=== PATIENT | female | born 1995 | race Caucasian/White ===

== ENCOUNTER 2019-11-06 09:59 | Inpatient (IN) ==
[2019-11-06] MEDS ORDERED: OXYTOCIN/DEXTROSE 5%-WATER 30 UNITS/500 ML BAG IV ONE (17:45)
[2019-11-06] MEDS ORDERED: BUTORPHANOL TARTRATE 2 MG/ML VIAL IV PRN ×2 (17:45)
[2019-11-06] MEDS ORDERED: ONDANSETRON 4 MG TAB.RAPDIS PO PRN (17:45)
[2019-11-06] MEDS ORDERED: RINGER'S SOLUTION,LACTATED 1,000 ML IV ONE (17:45)
[2019-11-06] MEDS ORDERED: LIDOCAINE HCL 50 ML VIAL PERI PRN (17:45)
[2019-11-06] MEDS ORDERED: NALBUPHINE HCL 10 MG/ML AMPUL IV PRN ×2 (17:45)
[2019-11-06] MEDS ORDERED: MISOPROSTOL 100 MCG TABLET VG PRN (17:45)
[2019-11-06 18:27] LABS: Cocaine Ur Negative (NEGATIVE); Urine Barbiturate Negative (NEGATIVE); Urine Benzodiazepines Negative (NEGATIVE); Urine Opiates Negative (NEGATIVE); Urine PCP Negative (NEGATIVE)
[2019-11-06 18:29] LABS: Urine THC Positive (NEGATIVE)
[2019-11-06] MEDS: RINGER'S SOLUTION,LACTATED 1,000 ML IV PRN (18:36)
[2019-11-07] MEDS: RINGER'S SOLUTION,LACTATED 1,000 ML IV PRN ×3 (02:51→17:59)
--- NOTE | 2019-11-07 12:01 | HP ---
Chief Complaint - Chief Complaint Date of Service: 11/07/19 Time of Service: 11:50 Chief Complaint: Labor induction History of Present Illness: 23 year old at 39w 1d who presents to labor and delivery for a medical induction of labor due to LGA fetus. She is starting to feel her ctx. She denies vb or lof. Fetus is active. Medical History (Last Reviewed 11/07/19 @ 11:53 by Margo Valente MD) No pertinent past medical history Onset Date: Unknown Scoliosis Onset Date: Unknown slight Blood in stool Onset Date: Unknown Depression Onset Date: Unknown Migraine Onset Date: Unknown resolved after having wisdom teeth extracted Thyroid disease Onset Date: ~2014 resolved UTI (urinary tract infection) Onset Date: Unknown as child Wrist fracture Onset Date: ~2014 Surgical History: Surgical History (Last Reviewed 11/07/19 @ 11:53 by Margo Valente MD) H/O wisdom tooth extraction Onset Date: Unknown bilateral leg fractures Onset Date: ~2014 open reduction internal fixation of left wrist Onset Date: Unknown Family History: Family History (Last Reviewed 11/07/19 @ 11:53 by Margo Valente MD) Mother Asthma Father Alive and well Uncle Crohn's disease Grandmother Lupus Other No pertinent family history Social History: (Last Reviewed 11/07/19 @ 11:53 by Margo Valente MD) Social History: adopted: No foster care: No fci: No Marital status: lives independently: Yes household members: spouse caregiver/support person: No current occupational status: unemployed Highest education level completed: high school graduate Sexually Active: Yes Service: No Tobacco: Smoking Status: Never smoker passive smoking exposure: No second hand exposure: No Alcohol: alcohol intake: former Substance Use: substance use type: former substance user, marijuana Dietary Habits: caffeine: Yes caffeine comment: 2 Type: carbonated beverages Review Of Systems (GEN) - Review of Systems Generalized/Overall Review: Present: No Symptoms Reported Genitourinary: Present: Other - contractions Misc: All systems neg except as marked Immunizations: IMMUNIZATION HX Immunizations Up to Date Yes History of Influenza Vaccine No Hx Pneumococcal Vaccination Yes Allergies/Adverse Reactions: Allergies Allergy/AdvReac Type Severity Reaction Status Date / Time Iodine and Iodide Containing AdvReac RASH Verified 10/30/19 08:55 Produc red dye AdvReac RASH Verified 10/30/19 08:55 Home Medications: HOME MEDICATIONS prenat.vits,josr,iiu-hhyn-gbcbs 1 tab PO DAILY 04/10/19 [Last Taken 11/05/19] sertraline 50 mg tablet 50 mg PO DAILY #30 tab 08/02/19 [Last Taken 11/06/19] ferrous sulfate 325 mg (65 mg iron) tablet 325 mg PO DAILY 09/04/19 [Last Taken 11/05/19] Exam - Exam Vital Signs: 139/77 36.5 Celcius 116 18 100 % RA Constitutional: Present: Alert, Oriented x3, Cooperative, No distress ENT Exam: Present: hearing grossly normal Neck: Present: supple, normal inspection Back Exam: Present: normal inspection, no CVA tenderness Breasts: Present: Exam deferred Respiratory: Present: lungs clear, normal breath sounds Cardiovascular/Chest: Present: regular rate, rhythm Abdomen: Present: soft, nontender, nondistended /Rectal: Present: Other - Fingertip/30/-3 Extremity: Present: non-tender, no calf tenderness Skin Exam: Present: normal color, warm/dry, no cyanosis Appearance: Present: appropriate appearance Eye contact: Present: cooperative Thoughts: Present: normal thought pattern Diagnostic Studies: Abnormal Lab Results 11/06/19 Range/Units 18:00 Urine Marijuana (THC) Positive H (NEGATIVE) Laboratory Results Urine Opiates Screen Negative (NEGATIVE) 11/06/19 18:00 Barbiturate Screen Negative (NEGATIVE) 11/06/19 18:00 Ur Phencyclidine Scrn Negative (NEGATIVE) 11/06/19 18:00 Urine Amphetamine Negative (NEGATIVE) 11/06/19 18:00 U Benzodiazepines Scrn Negative (NEGATIVE) 11/06/19 18:00 Urine Cocaine Screen Negative (NEGATIVE) 11/06/19 18:00 Urine Marijuana (THC) Positive (NEGATIVE) H 11/06/19 18:00 Blood Type B Positive 11/06/19 17:55 Antibody Screen Positive 11/06/19 17:55 Assessment/Plan - Narrative Narrative: 23 year old at 39w 1d Medical IOL: the patient received one cytotec and then has had very regular contractions since receiving cytotec and has remained fingertip. A Rodrigues bulb was placed GBS negative: prophylaxis not indicated
--- NOTE | 2019-11-07 15:04 | PN ---
Eli Note - Interim Date: 11/07/19 Time: 15:00 Narrative: 11/07/19 15:00 Late entry for Rodrigues balloon placement A sterile speculum was placed in the patient's vagina. An 14 danish Rodrigues balloon was initially placed with the aid of a tenaculum. The balloon was filled with 45 mL of saline which caused the balloon to rupture. The patient was informed that the balloon ruptured. Then an 18 danish Rodrigues balloon was placed and filled with 30 mL of saline without any difficulty. The speculum was removed from the patient's vagina. The patient tolerated the procedure well with discomfort. FHT was cat 1 the entire time during insertion
[2019-11-07] MEDS ORDERED: NALOXONE HCL 1 MG/1 ML SYRG IV PRN (16:04)
[2019-11-07] MEDS ORDERED: ONDANSETRON HCL/PF 2 MG/ML VIAL IV PRN (16:04)
[2019-11-07] MEDS ORDERED: fentaNYL CITRATE/PF 50 MCG/ML AMPUL IT SCH (16:15)
--- NOTE | 2019-11-07 17:08 | ANES ---
Anesthesia Pre Procedure Eval Vitals/Labs: Last Vital Signs Temp 36.6 C 11/07/19 17:02 Pulse 109 H 11/07/19 17:02 Resp 20 11/07/19 17:02 BP 125/63 11/07/19 17:02 HOME MEDICATIONS prenat.vits,josr,egx-rchr-nqchd 1 tab PO DAILY 04/10/19 [Last Taken 11/05/19] sertraline 50 mg tablet 50 mg PO DAILY #30 tab 08/02/19 [Last Taken 11/06/19] ferrous sulfate 325 mg (65 mg iron) tablet 325 mg PO DAILY 09/04/19 [Last Taken 11/05/19] Allergies/Adverse Reactions: Allergies Allergy/AdvReac Type Severity Reaction Status Date / Time Iodine and Iodide Containing AdvReac RASH Verified 10/30/19 08:55 Produc red dye AdvReac RASH Verified 10/30/19 08:55 - Planned Procedure Planned Procedure: Medical Induction Medication List Reviewed:: Yes Allergies Verified: Yes Medical History (Last Reviewed 11/07/19 @ 17:07 by Srikanth Lopez CRNA) No pertinent past medical history Onset Date: Unknown Scoliosis Onset Date: Unknown slight Blood in stool Onset Date: Unknown Depression Onset Date: Unknown Migraine Onset Date: Unknown resolved after having wisdom teeth extracted Thyroid disease Onset Date: ~2014 resolved UTI (urinary tract infection) Onset Date: Unknown as child Wrist fracture Onset Date: ~2014 Surgical History (Last Reviewed 11/07/19 @ 17:07 by Srikanth Lopez CRNA) H/O wisdom tooth extraction Onset Date: Unknown bilateral leg fractures Onset Date: ~2014 open reduction internal fixation of left wrist Onset Date: Unknown Family History (Last Reviewed 11/07/19 @ 17:07 by Srikanth Lopez CRNA) Mother Asthma Father Alive and well Uncle Crohn's disease Grandmother Lupus Other No pertinent family history - Family Anesthesia History Family History:: no untoward family reactions to anesthesia - Airway/Neck/Teeth Within Normal Limits:: Yes Teeth Condition: intact Neck Exam: full range of motion Mallampatti Score: 2 Thyromental (T-M) distance: > 6 cm Mandibulo Hyoid distance: > 3 cm - Respiratory Respiratory Physical: lungs clear Smoking Status: Never smoker Sleep Apnea currently treated: No Sleep Apnea by current assessment: No - Cardiovascular Tolerate Activity: Good Heart Sounds: S1 & S2, Regular - Gastrointestinal NPO since: 1500 - Anesthesia Assessment and Plan ASA Class: PS, II, E Anesthesia Type Plan: Epidural Planned difficult intubation/equipment available: No
--- NOTE | 2019-11-07 17:09 | ANES ---
Post Anesthesia Discharge - Transfer of Care Transfer of Care handoff given to nurse: Yes - Anesthesia Post Op Note Anesthesia Post Op Note: Care transferred to OB RN
--- NOTE | 2019-11-07 17:09 | ANES ---
Post Anesthesia Assessment - Vital Signs Vitals: Last Vital Signs Temp 36.6 C 11/07/19 17:02 Pulse 109 H 11/07/19 17:02 Resp 20 11/07/19 17:02 BP 125/63 11/07/19 17:02 Airway Patency: Normal - Mental Status Level Of Consciousness: Awake - Pain Level Pain Score: 1 - N/V Assessment Nausea/Vomiting Presence: None Dehydration:: No
--- NOTE | 2019-11-07 17:11 | ANES ---
Anesthesia Procedure Note Procedure Note: ANESTHESIA PROCEDURE NOTE Date of Procedure: 11/07/2019 Time of procedure: 1645. Performed by: Bin Lopez CRNA Furniture R[employer] Consultant: None. Preprocedure diagnosis: Active labor. Post procedure diagnosis: Same. Procedure: Insertion of labor epidural. Indications: The patient is a 23-year-old prima para female in active labor requesting labor epidural for pain management. Findings: See below. Details of the procedure: The patient was placed in a sitting position. Back was prepped with ChloraPrep. Patient was then draped in a sterile fashion. Lidocaine 1% was infiltrated to the skin and subcutaneous tissues at the level of the L3 4 interspace. The epidural space was identified using a 18-gauge Tuohy needle with [id number] technique. 20 mcg fentanyl was given intrathecally using a 27 ga. spinal needle. Epidural catheter was inserted without difficulty. Negative test dose was elicited using 5 mL of 1.5% preservative-free lidocaine plus epinephrine 1 200,000. The epidural catheter was then taped and secured in place. EBL: Minimal. Fluids: N/A. Specimen: N/A. Post procedure condition: The patient tolerated the procedure well. No complications were noted. Thank you for this consultation. Garvey CRNA
[2019-11-07] MEDS: BUPIVACAINE HCL/0.9 % NACL/PF 250 ML EP PRN (17:51)
--- NOTE | 2019-11-07 20:21 | PN ---
Eli Note - Interim Date: 11/07/19 Time: 20:19 Narrative: 11/07/19 20:19 Patient comfortable with epidural cvx 4/50/-3 AROM for clear fluid ctx q 4 mins FHT cat 1
[2019-11-08] MEDS ORDERED: ACETAMINOPHEN 500 MG TABLET PO ONE (01:49)
[2019-11-08] MEDS: RINGER'S SOLUTION,LACTATED 1,000 ML IV PRN ×2 (01:56→09:57)
[2019-11-08] MEDS: BUPIVACAINE HCL/0.9 % NACL/PF 250 ML EP PRN (11:06)
[2019-11-08] MEDS ORDERED: MISOPROSTOL 200 MCG TABLET RC ONE (13:25)
[2019-11-08] MEDS ORDERED: METHYLERGONOVINE MALEATE 0.2 MG/ML VIAL IM ONE (13:28)
[2019-11-08] MEDS ORDERED: CARBOPROST TROMETHAMINE 250 MCG/ML AMPUL IM ONE (13:29)
[2019-11-08] MEDS ORDERED: BENZOCAINE/MENTHOL 81 SPRAY CAN TP PRN (16:23)
[2019-11-08] MEDS ORDERED: SENNOSIDES 8.6 MG TABLET PO PRN (16:23)
[2019-11-08] MEDS ORDERED: HYDROcodone/ACETAMINOPHEN 1 EACH TABLET PO PRN (16:23)
[2019-11-08] MEDS ORDERED: GLYCERIN/WITCH HAZEL LEAF 40 APPL BOX TP PRN (16:23)
[2019-11-08] MEDS ORDERED: diphenhydrAMINE HCL 25 MG CAPSULE PO PRN (16:23)
[2019-11-08] MEDS ORDERED: HYDROCORTISONE 30 APPL TUBE TP PRN (16:23)
[2019-11-08] MEDS ORDERED: OXYTOCIN/DEXTROSE 5%-WATER 30 UNITS/500 ML BAG IV ONE (16:23)
[2019-11-08] MEDS ORDERED: BISACODYL 10 MG SUPP.RECT RC PRN (16:23)
--- NOTE | 2019-11-08 16:23 | OR ---
Operative Report - Dictated Report Narrative: Delivery Note for delivery complicated by shoulder dystocia The diagnosis of shoulder dystocia was made after the head delivered. This was determined because the shoulders did not deliver easily. Clinical EFW: 3800 grams Ultrasound EFW: 3539 grams The patient is not diabetic Date of delivery: 11/08/2019 Time of delivery: 1320 Length of the second stage of labor: 3 hours Head body interval: 40 seconds Anesthesia: epidural Position of head at delivery: direct OA The right shoulder was anterior Manuevers used: Sam Female weight: 3947 grams APGARS: 8/9 Once the head and shoulders delivered the rest of the infant delivered without difficulty. Cord clamping was delayed for 30 seconds. The was moving all extremities at . The shoulder, clavicle and humerus were intact The placenta delivered by expression and appeared intact. Mother's condition: Stable EBL: 600 mL or PPH. The patient received Pitocin, cytotec 1000 mcg NH, and methergine 0.2 mg IM. I did examine the lower cervix and since clots were not palpated I did not undertake a manual uterine exploration. No lacerations that required repair The mother was informed of dystocia Complications: shoulder dystocia Specimen: placenta to pathology History for Definition: * The number of deliveries resulting in a live the patient experienced prior to current hospitalization * The previous delivery of live twins or any live multiple gestation is considered one live event. *If primagravida or nulliparous is documented select zero for the number of previous live births. Live Events: 0
[2019-11-08] MEDS: IBUPROFEN 800 MG TABLET PO PRN (18:24)
[2019-11-08] MEDS: HYDROcodone/ACETAMINOPHEN 1 EACH TABLET PO PRN (18:25)
[2019-11-09] MEDS: HYDROcodone/ACETAMINOPHEN 1 EACH TABLET PO PRN ×4 (02:13→20:06)
[2019-11-09] MEDS: DOCUSATE SODIUM 100 MG CAPSULE PO SCH ×3 (02:42→21:24)
[2019-11-09] MEDS: SERTRALINE HCL 50 MG TABLET PO SCH (08:25)
[2019-11-09] MEDS: PRENATAL VITS96/IRON FUM/FOLIC 1 TAB TABLET PO SCH (08:25)
[2019-11-09] MEDS: IBUPROFEN 800 MG TABLET PO PRN ×2 (08:26→15:33)
--- NOTE | 2019-11-09 09:38 | PN ---
Subjective - Date and Time Seen Date: 11/09/19 Time: 09:37 Subjective Narrative: The patient reports her bleeding is much improved as compared to last night Objective Objective Narrative: See vital signs - Review of Systems Generalized/Overall Review: Reports: No Symptoms Reported Genitourinary Symptoms: Reports: Other - vaginal bleeding Misc: All systems neg except as marked - Vitals Vitals: Last Vital Signs Temp 37.0 C 11/08/19 16:10 Pulse 96 11/09/19 02:41 Resp 18 11/09/19 02:41 BP 105/62 11/09/19 02:41 Pulse Ox 98 11/09/19 02:41 - Exam Constitutional: Present: Alert, Oriented x3, Cooperative, No distress ENT Exam: Present: hearing grossly normal Abdomen: Present: soft, nontender, nondistended - fundus is firm Extremity: Present: non-tender, no calf tenderness Skin Exam: Present: normal color, warm/dry, no cyanosis Appearance: Present: appropriate appearance Eye contact: Present: cooperative Thoughts: Present: normal thought pattern Cauti Physician Documentation - Urinary Catheter Management Urethral (Rodrigues) Urethral Indwelling: No Date of Insertion: 11/07/19 Time of Insertion: 17:50 Date of Removal: 11/08/19 Time of Removal: 12:30 Assessment/Plan Plan Narrative: PPD 1 s/p Doing well Discharge home tomorrow
[2019-11-10] MEDS: HYDROcodone/ACETAMINOPHEN 1 EACH TABLET PO PRN ×2 (01:31→10:03)
[2019-11-10 09:36] VITALS: BP 116/67
[2019-11-10] MEDS: DOCUSATE SODIUM 100 MG CAPSULE PO SCH (10:02)
[2019-11-10] MEDS: PRENATAL VITS96/IRON FUM/FOLIC 1 TAB TABLET PO SCH (10:02)
[2019-11-10] MEDS: SERTRALINE HCL 50 MG TABLET PO SCH (10:02)
--- NOTE | 2019-11-10 10:02 | PN ---
Subjective - Date and Time Seen Date: 11/10/19 Time: 10:00 Subjective Narrative: The patient reports her bleeding is much improved as compared to last night Objective Objective Narrative: See vital signs - Review of Systems Generalized/Overall Review: Reports: No Symptoms Reported Misc: All systems neg except as marked - Vitals Vitals: Last Vital Signs Temp 36.6 C 11/10/19 09:35 Pulse 70 11/10/19 09:35 Resp 18 11/10/19 09:35 BP 116/67 11/10/19 09:35 Pulse Ox 100 11/10/19 09:35 - Exam Constitutional: Present: Alert, Oriented x3, Cooperative, No distress ENT Exam: Present: hearing grossly normal Abdomen: Present: soft, nontender, nondistended - fundus is firm Extremity: Present: non-tender, no calf tenderness Skin Exam: Present: normal color, warm/dry, no cyanosis Appearance: Present: appropriate appearance Eye contact: Present: cooperative Thoughts: Present: normal thought pattern Cauti Physician Documentation - Urinary Catheter Management Urethral (Rodrigues) Urethral Indwelling: No Date of Insertion: 11/07/19 Time of Insertion: 17:50 Date of Removal: 11/08/19 Time of Removal: 12:30 Assessment/Plan Plan Narrative: PPD 2 s/p Doing well Discharge home today Follow-up in 4 weeks or sooner for any other concerns
[2019-11-10] MEDS: IBUPROFEN 800 MG TABLET PO PRN (10:03)
== END 2019-11-10 14:30 | disposition home or self-care (01) | DRG 806 ==
LOC: OB 17:42 → MS 11-08 18:50
PROVIDERS: ADMIT Obstetrics & Gynecology; ATTEND Obstetrics & Gynecology
CPT/HCPCS: 59025; 80307; 86850; 86870; 88307; J2405